=== PATIENT | male | born 1995 | race Two or more races ===

== ENCOUNTER 2017-10-17 16:36 | Emergency (ER) | payer MEDICAID, OTHER ==
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
[2017-10-17] MEDS: Diphtheria,Pertussis(Acell),Tetanus Vaccine 0.5 ML SDV IM ONE (18:31)
== END 2017-10-17 18:35 | disposition home or self-care (01) ==
LOC: JD.ED 16:36 → SUPCPDRO 16:36 → JD.ED 18:35
DX: S91.131A Puncture wound without foreign body of right great toe without damage to nail, initial encounter (principal); S71.132A Puncture wound without foreign body, left thigh, initial encounter; S70.12XA Contusion of left thigh, initial encounter; S40.022A Contusion of left upper arm, initial encounter; F17.210 Nicotine dependence, cigarettes, uncomplicated; Z23 Encounter for immunization; Y04.2XXA Assault by strike against or bumped into by another person, initial encounter
CPT/HCPCS: 90471; 90715; 99284; 99284-25